=== PATIENT | female | born 1980 | race Caucasian/White ===

== ENCOUNTER 2019-09-23 09:44 | Emergency (ER) | payer MEDICAID ==
[~2019-09-23] VITALS: Ht 154.9 cm; Wt 75.9 kg
[2019-09-23 09:46] VITALS: BP 154/89
--- NOTE | 2019-09-23 09:54 | NUR ---
PT AMBULATED TO ER BED 02
--- NOTE | 2019-09-23 10:19 | NUR ---
DR BOSTON AT BEDSIDE
[2019-09-23] MEDS ORDERED: LACTULOSE 20 GM/30 ML UDC PO ONE (10:25)
[2019-09-23] MEDS ORDERED: KETOROLAC 60 MG/2 ML VIAL IM ONE (10:25)
--- NOTE | 2019-09-23 10:59 | NUR ---
PATIENT COMPLAINS OF LOWER BACK PAIN THAT RADIATES TO RIGHT LEG X 1 DAY. PATIENT STATES NO TRAUMA OR INJURY, PAIN STARTED SUDDENLY. NO SIGNS OF BRUISING, NO DISCOLORATION, NO SWELLING. PAIN IS 10/10. NO PAST MEDICAL HISTORY. PATIENT IS ABLE TO AMBULATE. PATIENT IS ALERT AND AWAKE. VS STABLE. BED IS IN LOWEST POSITION, LOCKED, AND 1 BEDRAIL UP.
--- NOTE | 2019-09-23 10:59 | NUR ---
PATIENT STATES LAST BOWEL MOVEMENT WAS 2 DAYS AGO, ADMINISTERED LACTULOSE FOR CONSTIPATION. ADMINISTERED TORADOL FOR PAIN.
--- NOTE | 2019-09-23 11:25 | NUR ---
XRAY AT BEDSIDE
--- NOTE | 2019-09-23 11:52 | NUR ---
PT STATES RELIEF FROM BACK AND LEG PAIN. PAIN 4/10
[2019-09-23 11:57] LABS: APPEARANCE,URINE SL CLOUDY (CLEAR); BILIRUBIN,URINE NEGATIVE (NEGATIVE); BLOOD, URINE TRACE-I (NEGATIVE); COLOR,URINE YELLOW (YELLOW); LEUKOCYTE ESTERASE ,URINE 1+ (NEGATIVE); NITRITE, URINE NEGATIVE (NEGATIVE); PH,URINE 5.5 (5.0-9.0); UGLUCOSE NEGATIVE (NEGATIVE)
[2019-09-23 12:53] LABS: RBC,URINE 0-5 /HPF (0-5)
[2019-09-23] MEDS ORDERED: LEVOFLOXACIN 500 MG TAB PO ONE (13:15)
[2019-09-23 13:35] VITALS: BP 154/89
--- NOTE | 2019-09-23 13:35 | NUR ---
Patient discharged with v/s stable. Written and verbal after care instructions given and explained. Patient alert, oriented and verbalized understanding of instructions. Ambulatory with steady gait. All questions addressed prior to discharge. ID band removed. Patient advised to follow up with PMD. Rx of LEVAQUIN given. Patient educated on indication of medication including possible reaction and side effects. Opportunity to ask questions provided and answered.
== END 2019-09-23 13:35 | disposition home or self-care (01) ==
LOC: MED 09:44
DX: M54.5 Low back pain (principal); N39.0 Urinary tract infection, site not specified; K59.09 Other constipation
CPT/HCPCS: 74018; 81001; 81025; 87086; 96372; 99284; J1885

== ENCOUNTER 2019-10-07 20:20 | Emergency (ER) | payer MEDICAID ==
[~2019-10-07] VITALS: Ht 160 cm; Wt 77.1 kg
[2019-10-07 20:21] VITALS: BP 126/78
--- NOTE | 2019-10-07 20:24 | NUR ---
PATIENT TAKEN BY WHEELCHAIR TO BED 11
--- NOTE | 2019-10-07 20:35 | NUR ---
38/F PRESENTED TO ED C/O ACUTE ON CHRONIC LOWER BACK PAIN. STATES SHE WOKE UP THIS MORNING WITH SEVERE BACK PAIN. DENIES INJURY BUT STATES SHE HAS HAD THE PAIN FOR ABOUT 10 YEARS. IBUPROFEN TAKEN AT 1600 WITH NO RELIEF. STATES SHE HAS HAD SIATIC NERVE PAIN IN THE PAST FROM PREVIOUS WORK. TAKES MUSCLE RELAXANT BUT NO RELIEF. PAIN 10/10 SHARP PAIN TO RIGHT THIGH AND LOWER BACK. DENIES PMH RX IBUPROFEN, MUSCLE RELAXANT DENIES ALLERGIES
[2019-10-07] MEDS ORDERED: KETOROLAC 30 MG/ML VIAL IM ONE (21:15)
[2019-10-07] MEDS ORDERED: HYDROcodone/APAP 5/325 MG 1 TAB TAB PO ONE (22:15)
[2019-10-08 03:17] VITALS: BP 125/74
== END 2019-10-08 03:18 | disposition home or self-care (01) ==
LOC: MED 20:20
DX: M54.5 Low back pain (principal)
CPT/HCPCS: 81002; 81025; 96372; 99283; J1885

== ENCOUNTER 2020-08-13 11:24 | Emergency (ER) | payer MEDICAID ==
[~2020-08-13] VITALS: Ht 152.4 cm; Wt 83.9 kg
--- NOTE | 2020-08-13 11:42 | NUR ---
PATIENT IN TENT
[2020-08-13 11:47] VITALS: BP 154/84
--- NOTE | 2020-08-13 11:47 | NUR ---
C/O LOSS OF TASTE & SMELL X 2 DAYS. DENIES FEVER/COUGH/SOB. PT DENIES BEING AROUND COVID + CONTACTS.
--- NOTE | 2020-08-13 11:51 | NUR ---
DR. DELCID EVALUATING PT IN TENT
--- NOTE | 2020-08-13 12:00 | NUR ---
COVID SWAB COLLECTED AND TAKEN TO LAB
[2020-08-13 12:08] VITALS: BP 154/84
--- NOTE | 2020-08-13 12:08 | NUR ---
Patient discharged with v/s stable. Written and verbal after care instructions given and explained. Patient verbalized understanding. Ambulatory with steady gait. All questions addressed prior to discharge. Advised to follow up with PMD.
--- NOTE | 2020-08-14 16:34 | NUR ---
Covid results received from lab. Results = POSITIVE. Hard copy requested from lab and placed in infection controls mailbox.
== END 2020-08-13 12:08 | disposition home or self-care (01) ==
LOC: MED 11:24
DX: U07.1 COVID-19 (principal); R43.8 Other disturbances of smell and taste
CPT/HCPCS: 99283; U0003

== ENCOUNTER 2021-11-19 12:33 | Emergency (ER) | payer MEDICAID ==
[~2021-11-19] VITALS: Ht 154.9 cm; Wt 63.5 kg
[2021-11-19 12:52] VITALS: BP 153/95
--- NOTE | 2021-11-19 12:55 | NUR ---
novel and influenza Addendum: 11/19/21 at 1256 by [email or web address] novel and flu swab done at this time
[2021-11-19] MEDS ORDERED: ACET-10509 PO (13:58)
[2021-11-19] MEDS ORDERED: PROM118S5 PO (13:58)
[2021-11-19 15:27] VITALS: BP 118/88
== END 2021-11-19 15:28 | disposition home or self-care (01) ==
LOC: MED 12:33
DX: R05.9 Cough, unspecified (principal); Z20.822 Contact with and (suspected) exposure to COVID-19; M79.10 Myalgia, unspecified site; R09.81 Nasal congestion; Z79.899 Other long term (current) drug therapy
CPT/HCPCS: 87804; 99283; U0003